=== PATIENT | female | born 1985 | race Caucasian/White ===

== ENCOUNTER 2016-08-27 11:05 | Emergency (ER) | payer OTHER ==
[~2016-08-27] VITALS: Ht 160 cm; Wt 64.3 kg
[~2016-08-27 11:05] MED LIST: ADVIL,NUPRIN,M200 MG PO; ADVIL200 MG PO; CIPRO500 MG PO; NOHOMEMEDS; TYLENOL REGULA325 MG PO
[2016-08-27 11:35] LABS: ADD MIUA? YES; BILIRUBIN NEGATIVE; BLOOD NEGATIVE; GLUCOSE (STRIP) NEGATIVE; KETONES NEGATIVE; LEUKOCYTES NEGATIVE; NITRITE NEGATIVE; PROTEIN (STRIP) NEGATIVE; SPECIFIC GRAVITY 1.018 (1.000-1.030); UROBILINOGEN 0.2 MG/DL (0.2-1.0)
[2016-08-27 11:36] LABS: COLOR LT YELLOW ((YELLOW))
[2016-08-27 11:50] LABS: EPITHELIAL CELLS 3+; MUCUS NONE SEEN; RED BLOOD CELLS NONE SEEN /HPF (0-5); WHITE BLOOD CELLS NONE SEEN /HPF (0-5)
[2016-08-27 11:51] LABS: BACTERIA NONE SEEN; CASTS NONE SEEN /LPF; CRYSTALS NONE SEEN; UCUL ADDED? NO
[2016-08-27 12:05] LABS: HEMATOCRIT 33.3 % (36.0-46.0); MCH 21.3 PG (29.0-34.0); MCHC 29.4 G/DL (30.0-36.0); MCV 72.4 FL (83-99); MEAN PLAT.VOLUME 10.8 uM^3 (9.5-12.4); PLATELET COUNT 294 K/uL (156-360); RBC DIS.WIDTH-SD 46.2 % (39-53); WHITE BLOOD COUNT 7.8 K/uL (4.1-10.2)
[2016-08-27 12:14] LABS: CHLORIDE 107 mEq/L (99-109); POTASSIUM 4.3 mEq/L (3.7-5.4); SODIUM 139 mEq/L (136-147)
[2016-08-27 12:16] LABS: GLUCOSE 88 mg/dL (70-99)
[2016-08-27 12:17] LABS: ANION GAP 7 MEQ/L (2-14)
[2016-08-27 12:20] LABS: GFR ESTIMATE (CALCULATED) > 59 mL/min/
[2016-08-27 12:21] LABS: UREA NITROGEN (BUN) 17 mg/dL (9-23)
[2016-08-27 12:28] LABS: QUANTITATIVE HCG < 4.0 MIU/ML
[2016-08-27] MEDS ORDERED: FLEXERIL10 MG PO (13:06)
[2016-08-27] MEDS ORDERED: PREDNISONE20 MG PO (13:06)
[2016-08-27] MEDS ORDERED: NAPROXEN500 MG PO (13:06)
[2016-08-27] MEDS ORDERED: LIDODERM 5% P1 PATCH TD (13:06)
[2016-08-27 13:46] VITALS: BP 129/96
== END 2016-08-27 13:48 | disposition home or self-care (01) ==
LOC: EME 11:05
DX: M54.41 Lumbago with sciatica, right side (principal)
CPT/HCPCS: 80048; 81003; 84702; 85027; 99281; 99284; J1885; J7512